=== PATIENT | female | born 1990 | race Caucasian/White ===

== ENCOUNTER 2019-02-17 22:32 | Day surgery (SDC) | payer OTHER ==
[2019-02-17 23:18] VITALS: BMI 28.3
[2019-02-17] MEDS ORDERED: hydrALAZINE 20 MG/ML VIAL SLOW IVP PRN (23:40)
--- NOTE | 2019-02-18 00:30 | HP ---
TIME OF EVALUATION: 2330 hours, it is 2344 hours. LOCATION: [facility] [place], bed #7. REASON FOR EVALUATION/CHIEF COMPLAINT: Decreased movement. This is a patient of Dr. Hutchison. HISTORY OF PRESENT ILLNESS: This is a 28-year-old, G2, P1 with a history of a previous who has a repeat scheduled for February 25, 2019. Her EDC is March 03, 2019. She is currently at 38 weeks gestational age. She denies vaginal bleed or leakage of fluid and had some decreased movement, but now is better. REVIEW OF SYSTEMS: Complete review of systems was checked and is otherwise negative unless specified in the HPI. PAST MEDICAL HISTORY: Negative. PAST SURGICAL HISTORY: Includes sinus surgery and a . ALLERGIES: NONE. SOCIAL HISTORY: Noncontributory. PHYSICAL EXAMINATION: VITAL SIGNS: She is afebrile and her blood pressure is 109/60 and pulse is in the 80s. Clinically, she is in no acute distress. ABDOMEN: Soft and nontender. CERVIX: Cervical exam is deferred as there are no clinical complaints of contractions. On the nonstress test, heart tones are reactive with moderate variability and accelerations. Rate is in the 130s to 140s. There is some uterine irritability, but no distinct contraction pattern. ASSESSMENT: This is a patient who is at 38 weeks, scheduled for on February 25, 2019, for nonstress test for decreased movement. The nonstress test is reactive. PLAN: 1. Reassurance given. 2. The patient told to keep her followup within 24-48 hours. 3. No acute indication for delivery at this time. Job ID: [id number]
== END 2019-02-18 00:45 | disposition home or self-care (01) ==
LOC: L&D/OP 22:32
PROVIDERS: ATTEND Obstetrics & Gynecology
DX: O36.8130 Decreased fetal movements, third trimester, not applicable or unspecified (principal); O34.219 Maternal care for unspecified type scar from previous cesarean delivery; Z3A.38 38 weeks gestation of pregnancy

== ENCOUNTER 2019-02-25 05:13 | Inpatient (IN) | payer BC, OTHER ==
[2019-02-25] MEDS ORDERED: CEFAZOLIN 2 GM in Premix Bag 1 BAG IVPB SCH (05:27)
[2019-02-25] MEDS ORDERED: Ondansetron PF 4 MG/2 ML Vial IVP PRN ×2 (05:27→09:24)
[2019-02-25] MEDS ORDERED: Bicitra 30 ML UDCUP PO SCH (05:27)
[2019-02-25] MEDS ORDERED: Lactated Ringer's 1,000 ML IV SCH (05:27)
[2019-02-25] MEDS ORDERED: hydrALAZINE 20 MG/ML VIAL SLOW IVP PRN ×2 (05:27→11:07)
[2019-02-25] MEDS ORDERED: Promethazine HCl 25 MG/ML VIAL IM PRN ×2 (05:27→09:24)
[2019-02-25 05:45] VITALS: BMI 28.7
[2019-02-25 06:21] LABS: Mean Corpuscular Hemoglobin 29.9 pg (27.0-31.0); Mean Corpuscular Volume 85.4 fL (78.0-98.0); Mean Platelet Volume 8.3 fL (7.4-10.4); Platelet Count 153 thou/uL (130-400); RBC Distribution Width 15.7 % (11.5-14.5); Red Blood Cell (RBC) Count 4.02 mill/uL (4.20-5.40); White Blood Cell (WBC) Count 10.9 thou/uL (4.8-10.8)
[2019-02-25 07:01] LABS: HBSAg Index 0.22 S/CO (0-0.99); Hep B Surf Ag Non-Reactive S/CO (NonReactive); Syphilis Antibody Nonreactive (Nonreactive); Syphilis Antibody Index 0.04 S/CO (<1.00 Non-Reactive)
[2019-02-25] MEDS ORDERED: Oxytocin 10 UNITS/ML VIAL ONE (07:16)
[2019-02-25] MEDS ORDERED: MORPHINE 5 MG/10 ML PF VIAL ONE (07:18)
[2019-02-25] MEDS ORDERED: Fentanyl 100 MCG/2 ML VIAL ONE (07:18)
[2019-02-25] MEDS ORDERED: Ondansetron PF 4 MG/2 ML Vial ONE (07:19)
[2019-02-25] MEDS ORDERED: PHENYLEPHRINE-NS 100 MCG/ML 10 ML SYRINGE ONE (07:19)
[2019-02-25] MEDS ORDERED: ePHEDrine/0.9% NaCl/PF SYRINGE 50 mg/10 ml ONE (07:19)
[2019-02-25] MEDS ORDERED: Meperidine HCl/PF 25 MG/ML VIAL SLOW IVP PRN (09:24)
[2019-02-25] MEDS ORDERED: L&D-Morphine 4 MG/ML VIAL SLOW IVP PRN (09:24)
[2019-02-25] MEDS ORDERED: diphenhydrAMINE 50 MG/ML VIAL IVP PRN (09:24)
[2019-02-25] MEDS ORDERED: Promethazine HCl 25 MG SUPP PR PRN (09:24)
[2019-02-25] MEDS ORDERED: HYDROmorphone 2 MG/ML VIAL SLOW IVP PRN (09:24)
[2019-02-25] MEDS ORDERED: Naloxone HCl 0.4 mg/ml Vial IVP PRN ×2 (09:24)
[2019-02-25] MEDS ORDERED: Ondansetron HCl/PF 4 MG/2 ML Vial IVP PRN (09:24)
[2019-02-25] MEDS ORDERED: Naloxone HCl 0.4 mg/ml Vial IV PRN (09:24)
[2019-02-25] MEDS ORDERED: Communication Order-Pharmacy FS SCH (09:30)
[2019-02-25] MEDS ORDERED: Ketorolac Tromethamine 30 MG/ML VIAL IVP SCH (09:30)
[2019-02-25] MEDS ORDERED: NS / Oxytocin 40 units/1000ml 1,000 ML ONE (09:41)
[2019-02-25] MEDS ORDERED: Lanolin Ointment 7 GM TUBE TOP PRN (11:07)
[2019-02-25] MEDS ORDERED: Adacel (T-DAP) 0.5 ML SYRINGE IM ONE (11:07)
[2019-02-25] MEDS ORDERED: Misoprostol 200 MCG TAB PR PRN (11:07)
[2019-02-25] MEDS ORDERED: Acetaminophen 325 MG TAB PO PRN (11:07)
[2019-02-25] MEDS ORDERED: Zolpidem Tartrate 5 MG TAB PO PRN (11:07)
[2019-02-25] MEDS ORDERED: Bisacodyl 10 MG SUPP PR PRN (11:07)
[2019-02-25] MEDS ORDERED: NS / Oxytocin 40 units/1000ml 1,000 ML IV SCH ×2 (11:15→11:30)
[2019-02-25] MEDS ORDERED: Meperidine HCl/PF 25 MG/ML VIAL ONE (12:09)
[2019-02-25] MEDS ORDERED: Ketorolac Tromethamine 30 MG/ML VIAL ONE (12:09)
[2019-02-25] MEDS ORDERED: Meperidine HCl/PF 25 MG/ML VIAL IM PRN (21:31)
[2019-02-25] MEDS: Ketorolac Tromethamine 30 MG/ML VIAL IVP PRN (21:41)
[2019-02-25] MEDS: HYDROcodone/Acetaminophen 5/325 mg Tablet PO PRN (23:43)
[2019-02-25] MEDS: Simethicone Chewable 80 MG TAB PO PRN (23:43)
[2019-02-25] MEDS: Docusate Calcium (SURFAK) 240 MG CAP PO SCH (23:43)
[2019-02-25] MEDS: Ferrous Sulfate 325 MG TAB PO SCH (23:44)
[2019-02-26] MEDS: Ketorolac Tromethamine 30 MG/ML VIAL IVP PRN (01:41)
[2019-02-26 05:51] LABS: Hemoglobin 10.5 g/dL (12.0-16.0); Mean Corpuscular HGB CONC 33.9 g/dL (32.0-36.0); Mean Corpuscular Hemoglobin 29.1 pg (27.0-31.0); Mean Platelet Volume 7.9 fL (7.4-10.4); Platelet Count 126 thou/uL (130-400); RBC Distribution Width 15.6 % (11.5-14.5); Red Blood Cell (RBC) Count 3.59 mill/uL (4.20-5.40); White Blood Cell (WBC) Count 11.1 thou/uL (4.8-10.8)
[2019-02-26] MEDS: Docusate Calcium (SURFAK) 240 MG CAP PO SCH ×2 (08:28→20:29)
[2019-02-26] MEDS: Prenatal Vitamin 1 TAB PO SCH (08:28)
[2019-02-26] MEDS: HYDROcodone/Acetaminophen 5/325 mg Tablet PO PRN ×4 (08:28→20:29)
[2019-02-26] MEDS: Simethicone Chewable 80 MG TAB PO PRN (08:29)
[2019-02-26] MEDS: Ibuprofen 800 MG TAB PO SCH ×2 (10:06→18:00)
[2019-02-26] MEDS: Ferrous Sulfate 325 MG TAB PO SCH ×2 (10:07→22:03)
[2019-02-27] MEDS: Ibuprofen 800 MG TAB PO SCH ×2 (01:43→09:23)
[2019-02-27] MEDS: HYDROcodone/Acetaminophen 5/325 mg Tablet PO PRN ×3 (01:46→09:23)
[2019-02-27] MEDS: Ferrous Sulfate 325 MG TAB PO SCH (07:38)
[2019-02-27 08:50] VITALS: BP 119/73; TEMP 98.3
[2019-02-27] MEDS: Prenatal Vitamin 1 TAB PO SCH (09:17)
[2019-02-27] MEDS: Docusate Calcium (SURFAK) 240 MG CAP PO SCH (09:17)
--- NOTE | 2019-02-27 09:31 | OP ---
DATE OF PROCEDURE: 02/25/2019 [employer] SURGEON: Kim Marr MD PREOPERATIVE DIAGNOSES: 1. Term intrauterine at 39 weeks. 2. Previous section. POSTOPERATIVE DIAGNOSES: 1. Term intrauterine at 39 weeks. 2. Previous section. PROCEDURE PERFORMED: Repeat low-transverse section. ANESTHESIA: Spinal catheterization. FINDINGS: 1. Minimal scarring and adhesions. 2. Vigorous male infant, 7 pounds 1 ounce. Apgars 8 and 9. 3. Normal uterus, tubes, and ovaries. COMPLICATIONS: None. SPECIMENS REMOVED: Cord blood. ESTIMATED BLOOD LOSS: Approximately 600 mL (QBL equal 575). DESCRIPTION OF PROCEDURE: After thorough consent and counseling, Mrs. Kenney was taken to the operating room and adequate level of anesthesia was obtained via spinal catheterization. The patient was prepped and draped in usual sterile fashion for abdominal surgery. A Serra was placed in the bladder, which was noted to be draining clear urine. A team time-out was performed per protocol. Attention was then turned to performing the repeat low-transverse section. A Pfannenstiel incision was made and the old scar was excised. The incision was carried sharply to the fascia, which was also sharply incised. The midline was identified and the rectus muscles were retracted laterally. The abdominoperineal cavity was entered with usual safeguards carried out. A retractor was placed and a bladder flap was created on the vesicouterine peritoneum. A bladder blade was then placed. A low-transverse incision was made on the well-developed lower uterine segment. Upon entering the amniotic sac, copious amount of clear amniotic fluid was visualized. The was noted to be vertex presentation in the occiput anterior position still high in the pelvis. Head was delivered and baby was bulb suctioned on the abdomen. Shoulders and body were then delivered in an atraumatic fashion. The cord was doubly clamped and cut. The infant was handed to the Pediatric Team in attendance for the delivery. was a vigorous viable male weighing 7 pounds 1 ounce with Apgars of 8 and 9 obtained at one and five minutes respectively. Cord blood was obtained. The placenta was manually removed from the uterus. The uterus was exteriorized and good tone was noted. The uterine cavity was cleared of any remaining clot and fluid. The low-transverse incision was closed in a running locking ligature of #1 chromic. Several [id number] ligatures of #1 chromic were placed to facilitate strength and hemostasis. The vesicouterine peritoneum was reapproximated to the lower segment with running ligature of 3-0 Monocryl suture. Once again, good tone and hemostasis were noted. The posterior cul-de-sac and gutters were cleared of clot and fluid. The uterus, fallopian tubes, and ovaries were inspected and noted to be normal. No pathology was identified. The uterus was returned to the abdomen. The incision was inspected and noted to be hemostatic. Lap, sponge, and needle counts were correct. The peritoneum was then closed with a running ligature of 2-0 Vicryl suture. The rectus muscles were reapproximated in the midline with interrupted ligatures of 2-0 Vicryl suture. The fascia was then closed with 2 ligatures of 0 Vicryl suture, which were tied in the midline. Good fascial integrity was appreciated. The incision was then irrigated with copious amount of warm normal saline. Hemostasis was obtained with Bovie cauterization. The subcutaneous tissue was then closed with interrupted ligatures of 2-0 plain. The skin was then closed with subcuticular stitch of 4-0 Monocryl and dressed with Dermabond. A pressure dressing and ice packs were subsequently placed. Lap, sponge, and needle counts were correct x3. Estimated blood loss during the surgical procedure was approximately 600 mL. The patient was taken to the recovery room in good condition. Immediately following surgery, the patient and family were made aware of the surgical procedure and operative findings. Questions were answered to their satisfaction. Mother and baby were doing well postoperatively. The [place] [facility] [id number] and . The patient and her are very appreciative of the care received here at [facility] this morning. Job ID: [id number]
== END 2019-02-27 09:45 | disposition home or self-care (01) | DRG 788 ==
LOC: L&D 05:13 → 3SW 12:28
PROVIDERS: ADMIT Obstetrics & Gynecology; ATTEND Obstetrics & Gynecology
PROC: 10D00Z1 Extraction of Products of Conception, Low, Open Approach (ICD-10-PCS; principal; 2019-02-25)
DX: O34.211 Maternal care for low transverse scar from previous cesarean delivery (principal); Z3A.39 39 weeks gestation of pregnancy; Z37.0 Single live birth
CPT/HCPCS: 36415; 51702; 85027; 86780; 86850; 86900; 86901; 87340; J0690; J1885; J2175; J2274; J2310; J2405; J2590; J3010

== ENCOUNTER 2020-05-21 11:01 | Outpatient (CLI) | payer BC, OTHER | END 2020-05-21 11:02 | disposition home or self-care (01) | LOC: SCSRAD 11:01 | PROVIDERS: ATTEND Family Medicine | DX: S69.90XA Unspecified injury of unspecified wrist, hand and finger(s), initial encounter (principal) ==

== ENCOUNTER 2021-10-02 10:27 | Emergency (ER) | payer BC, OTHER ==
[2021-10-02] MEDS ORDERED: Bacitracin 1 PK ONE (11:50)
[2021-10-02 12:25] LABS: HIV (1/2) Antibody/Antigen Non-Reactive (NonReactive); HIV 1/2 INDEX 0.13 S/CO (<1.00); Hep C IgG Ab Non-Reactive (NonReactive); Hep C Index 0.35 S/CO (0-0.79)
[2021-10-02 12:38] LABS: HBSAB Concentration 301.14 mIU/mL; Hep B Surf AB Reactive (NonReactive)
== END 2021-10-02 11:49 | disposition home or self-care (01) ==
LOC: ERS 10:27
DX: S50.811A Abrasion of right forearm, initial encounter (principal); Z77.21 Contact with and (suspected) exposure to potentially hazardous body fluids; W50.4XXA Accidental scratch by another person, initial encounter
CPT/HCPCS: 36415; 99283